=== PATIENT | female | born 1990 | race American Indian/Alaskan Native ===

== ENCOUNTER 2017-01-19 15:54 | Emergency (ER) | payer SELFPAY ==
[2017-01-19 16:26] VITALS: BP 146/96
--- NOTE | 2017-01-19 16:28 | Emergency Department Report ---
Stated Complaint: SOB/DIZZINESS Time Seen by Provider: 01/19/17 16:26 - HPI History of Present Illness: PT states she does not feel well today. PT states this started yesterday after she was cleaning with toilet latrine cleaner and bleach. PT states she has been coughing and having chest pain. - ROS Review of Systems: - fever, chills + chest pain - Exam Vital Signs: Vital Signs 01/19/17 16:24 Temperature 99.2 F Pulse Rate 104 H Respiratory 22 Rate Blood Pressure 146/96 O2 Sat by Pulse 99 Oximetry Physical Exam: thin female no acute resp distress lungs [facility] MSE screening note: Focused history and physical exam performed. Due to findings the following was ordered: ekg, labs, chest xr ED Disposition for MSE Condition: Stable
[2017-01-19 17:11] LABS: Basophils % (Auto) 0.3 % (0.0-1.8); Eosinophils % (Auto) 1.2 % (0.0-4.3); Hematocrit 39.3 % (30.3-42.9); Hemoglobin 13.4 gm/dl (10.1-14.3); Mean Corpuscular HGB Conc 34 % (30-34); Mean Corpuscular Hemoglobin 33 pg (28-32); Mean Corpuscular Volume 96 fl (79-97); Platelet Count 204 K/mm3 (140-440); Red Blood Count 4.11 M/mm3 (3.65-5.03); Red Cell Distribution Width 13.6 % (13.2-15.2); White Blood Count 7.5 K/mm3 (4.5-11.0)
[2017-01-19 17:29] LABS: Anion Gap 18 mmol/L; BUN/Creatinine Ratio 12.85; Blood Urea Nitrogen 9 mg/dL (7-17); Calcium 9.1 mg/dL (8.4-10.2); Carbon Dioxide 23 mmol/L (22-30); Chloride 101.2 mmol/L (98-107); Glucose 91 mg/dL (65-100); Potassium 3.5 mmol/L (3.6-5.0); Sodium 139 mmol/L (137-145)
--- NOTE | 2017-01-20 07:47 | XRay Report ---
ROUTINE CHEST, TWO VIEWS: HISTORY: chest pain. The trachea, heart, mediastinal contour, lung de and bony thorax are unremarkable. IMPRESSION: Unremarkable chest x-ray.
== END 2017-01-19 22:08 | disposition left against medical advice (07) ==
LOC: ED 15:54
DX: R42 Dizziness and giddiness (principal); Z53.21 Procedure and treatment not carried out due to patient leaving prior to being seen by health care provider
CPT/HCPCS: 36415; 71020; 80048; 84484; 84703; 85025; 93005; 93010

== ENCOUNTER 2018-05-06 09:41 | Emergency (ER) | payer OTHER, SELFPAY ==
[2018-05-06] MEDS ORDERED: IBUPROFEN PO ONE (11:01)
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
[2018-05-06 12:20] VITALS: BP 125/71
== END 2018-05-06 11:30 | disposition home or self-care (01) ==
LOC: ED 09:41
DX: R51 Headache (principal); M54.2 Cervicalgia; M54.5 Low back pain; V49.9XXA Car occupant (driver) (passenger) injured in unspecified traffic accident, initial encounter; Y93.89 Activity, other specified; Y92.488 Other paved roadways as the place of occurrence of the external cause; Y99.8 Other external cause status
CPT/HCPCS: 99282

== ENCOUNTER 2018-06-25 07:42 | Emergency (ER) | payer OTHER ==
[2018-06-25 07:59] VITALS: BP 139/91
--- NOTE | 2018-06-25 08:29 | Emergency Department Report ---
Abscess Boil HPI - HPI Chief Complaint: Skin/Abscess/Foreign Body Stated Complaint: CYST Time Seen by Provider: 06/25/18 08:07 Duration: >1 Week Location: Sacral/Pilonidal Severity: Mild History: Yes Pain, Yes Previous History, No Fever, No Purulent Drainage, No Numbness, No Foreign Body, No Insect Bite HPI: Patient is a 27-year-old -[place] female who comes to the ER today with chronic cyst of her buttocks. She has a history of pilonidal cyst. They have been recurrent. She has old lesions on her left buttocks. She has one small area on her right buttocks that is red and firm to touch likely early abscess formation. Patient states that she has never been told that she needed to follow up with a general surgeon to prevent this from recurring. Patient has no fever she is ambulatory and nontoxic Home Medications: Previous Rx's Medication Instructions Recorded Last Taken Type cephALEXin [Keflex] 500 mg PO Q12HR #20 cap 06/25/18 Unknown Rx Allergies/Adverse Reactions: Allergies Allergy/AdvReac Type Severity Reaction Status Date / Time No Known Allergies Allergy Verified 09/11/15 07:24 ED Review of Systems ROS: Stated complaint: CYST Other details as noted in HPI Comment: All other systems reviewed and negative Constitutional: denies: see HPI ENT: denies: ear pain Respiratory: denies: cough Cardiovascular: denies: palpitations Endocrine: denies: excessive sweating Gastrointestinal: denies: nausea Genitourinary: denies: urgency Musculoskeletal: denies: back pain Skin: as per HPI, lesions Neurological: denies: headache Psychiatric: denies: anxiety ED Past Medical Hx - Past Medical History Previous Medical History?: No Hx Congestive Heart Failure: No Hx Diabetes: No Hx Asthma: No Hx COPD: No Additional medical history: recurrent abscess of buttocks - pilonial - Surgical History Past Surgical History?: No - Social History Smoking Status: Never Smoker Substance Use Type: Alcohol - Medications Home Medications: Home Medications Medication Instructions Recorded Confirmed Last Taken Type cephALEXin [Keflex] 500 mg PO Q12HR #20 cap 06/25/18 Unknown Rx ED Abscess Boil Physical Exam - Exam General: Vital signs noted. No distress. Alert and acting appropriately. Exam: Yes Surrounding Cellulites/Erythema, Yes Normal Neurologic Exam, Yes Normal Circulation, No Tenderness, No Fluctuance, No Lymphangitis, No Crepitation, No Heart Murmur ED Course Vital Signs 06/25/18 07:57 Temperature 98.9 F Pulse Rate 86 Respiratory 17 Rate Blood Pressure 139/91 O2 Sat by Pulse 100 Oximetry Critical care attestation.: If time is entered above; I have spent that time in minutes in the direct care of this critically ill patient, excluding procedure time. ED Medical Decision Making - Medical Decision Making There is no area that needs I&D at the present time. I have spent time with the patient educating her about ongoing management of her issues. I have encouraged her to follow up with a general surgeon so that she can get this resolved definitively and not have to keep having abscess drainage etc. She's been given a referral and verbalizes understanding. Patient being sent home on antibiotics ED Disposition Clinical Impression: Abscess, Chronic recurrent pilonidal cyst without abscess Disposition: DC-01 TO HOME OR SELFCARE Is pt being admited?: No Does the pt Need Aspirin: No Condition: Stable Instructions: Abscess (ED) Additional Instructions: meds as instructed today follow up with general surgery sonu motrin or tylenol for pain Prescriptions: cephALEXin [Keflex] 500 mg PO Q12HR #20 cap Referrals: PRIMARY CARE, [Primary Care Provider] - 3-5 Days SHALA MENCHACA DO [Staff Physician] - 3-5 Days Forms: Work/School Release Form(ED) Time of Disposition: 08:29
== END 2018-06-25 08:47 | disposition home or self-care (01) ==
LOC: ED 07:42
DX: L05.01 Pilonidal cyst with abscess (principal)
CPT/HCPCS: 99282

== ENCOUNTER 2021-02-13 06:59 | Emergency (ER) | payer SELFPAY ==
[2021-02-13] MEDS ORDERED: IBUPROFEN 800 MG TAB PO ONE (07:14)
--- NOTE | 2021-02-13 08:19 | Emergency Department Report ---
ED Lower Extremity HPI - General Chief Complaint: Extremity Injury, Lower Stated Complaint: PINKY TOE INJURY Time Seen by Provider: 02/13/21 07:13 Source: patient Mode of arrival: Ambulatory Limitations: No Limitations - History of Present Illness Initial Comments: This is a 30-year-old female nontoxic, well nourished in appearance, no acute signs of distress presents to the ED with c/o of left 5th toe pain x 1 day. Patient stated that she tripped and fell and hit her toe. Patient denies any other injuries or trauma. Patient denies any numbness, tingling, fever, chills, nausea, vomiting, chest pain, shortness of breath, headache, stiff neck. P atient denies any joint swelling or joint redness. Patient denies decreased range of motion. Patient stated has decreased gait due to pain. Patient denies any allergies or significant past medical history. MD Complaint: other (left 5th toe) -: days(s) Injury: Toes: Left Place: home Severity: mild Severity scale (0 -10): 3 Improves With: nothing Worsens With: palpation Associated Symptoms: ambulatory. denies: snap/pop sensation, swelling, numbness, tingling, unable to bear weight, able to partially bear weight - Related Data Previous Rx's Medication Instructions Recorded Last Taken Type cephALEXin [Keflex] 500 mg PO Q12HR #20 cap 06/25/18 Unknown Rx Naproxen 500 mg PO Q12H PRN #12 tablet 02/13/21 Unknown Rx Allergies Allergy/AdvReac Type Severity Reaction Status Date / Time No Known Allergies Allergy Verified 02/13/21 07:15 ED Review of Systems ROS: Stated complaint: PINKY TOE INJURY Other details as noted in HPI Comment: All other systems reviewed and negative Constitutional: denies: chills, fever Eyes: denies: eye pain, eye discharge, vision change ENT: denies: ear pain, throat pain Respiratory: denies: cough, shortness of breath, wheezing Cardiovascular: denies: chest pain, palpitations Endocrine: no symptoms reported Gastrointestinal: denies: abdominal pain, nausea, diarrhea Genitourinary: denies: urgency, dysuria, discharge Musculoskeletal: denies: back pain, joint swelling, arthralgia Skin: denies: rash, lesions Neurological: denies: headache, weakness, paresthesias Psychiatric: denies: anxiety, depression Hematological/Lymphatic: denies: easy bleeding, easy bruising ED Past Medical Hx - Past Medical History Hx Congestive Heart Failure: No Hx Diabetes: No Hx Asthma: No Hx COPD: No Additional medical history: recurrent abscess of buttocks - pilonial - Social History Smoking Status: Never Smoker Substance Use Type: Alcohol - Medications Home Medications: Home Medications Medication Instructions Recorded Confirmed Last Taken Type cephALEXin [Keflex] 500 mg PO Q12HR #20 cap 06/25/18 Unknown Rx Naproxen 500 mg PO Q12H PRN #12 tablet 02/13/21 Unknown Rx ED Physical Exam - General Limitations: No Limitations General appearance: alert, in no apparent distress - Head Head exam: Present: atraumatic, normocephalic - Eye Eye exam: Present: normal appearance - Neck Neck exam: Present: full ROM - Respiratory Respiratory exam: Absent: respiratory distress - Cardiovascular Cardiovascular Exam: Present: regular rate - Extremities Exam Extremities exam: Present: normal inspection, full ROM, tenderness, normal capillary refill. Absent: joint swelling - Expanded Lower Extremity Exam Left Hip exam: Present: normal inspection, full ROM. Absent: tenderness, swelling Upper Leg exam: Present: normal inspection, full ROM. Absent: tenderness, swelling Knee exam: Present: normal inspection, full ROM. Absent: tenderness, swelling Lower Leg exam: Present: normal inspection, full ROM. Absent: tenderness, swelling Ankle exam: Present: normal inspection, full ROM. Absent: tenderness, swelling, abrasion, laceration, ecchymosis, deformity, crepidus, dislocation, erythema, anterior draw sign Foot/Toe exam: Present: normal inspection, full ROM, tenderness, ecchymosis. Absent: swelling, abrasion, laceration, deformity, crepidus, dislocation, erythema, amputation, puncture wound, foreign body, calcaneal tenderness, tenderness at base of 5th metatarsal, nail avulsion, subungual hematoma Neuro vascular tendon exam: Present: no vascular compromise Gait: Positive: observed and normal 1 - pain here - Back Exam Back exam: Present: normal inspection, full ROM. Absent: tenderness, CVA tenderness (R), CVA tenderness (L), muscle spasm, paraspinal tenderness, vertebral tenderness, rash noted - Neurological Exam Neurological exam: Present: alert, oriented X3, normal gait - Psychiatric Psychiatric exam: Present: normal affect, normal mood - Skin Skin exam: Present: warm, dry, intact, normal color. Absent: rash ED Course Vital Signs 02/13/21 08:32 Temperature 98.0 F Pulse Rate 81 Respiratory 19 Rate Blood Pressure 133/82 O2 Sat by Pulse 100 Oximetry - Reevaluation(s) Reevaluation #1: 02/13/21 08:23 Patient is speaking in full sentences with no signs of distress noted. ED Lower Extremity MDM - Radiology Data [facility] [address] [place] [address] XRay Report Signed Patient: JCARLOS MCCURDY MR#: [id number] : 1990 Acct:[id number] Age/Sex: 30 / F ADM Date: 02/13/21 Loc: ED Attending Dr: Ordering Physician: PETER DELGADILLO NP Date of Service: 02/13/21 Procedure(s): XR foot 3+V LT Accession Number(s): [id number] cc: PETER DELGADILLO NP Fluoro Time In Minutes: LEFT FOOT 3 VIEWS INDICATION: pain s/p fall. COMPARISON: None. IMPRESSION: A subtle nondisplaced fracture is identified at the base of the distal phalanx of the fifth toe. No additional fractures. An approximate 1 cm osteochondral defect is suspected involving the first metatarsal head. No unstable fragment is detected on x-ray. If further evaluation is needed MRI could be obtained. The remaining joint spaces are unremarkable. Signer Name: Kyler Murray Jr, MD Signed: 02/13/2021 8:19 AM Workstation Name: [id number] Transcribed By: TTR Dictated By: KYLER MURRAY JR, MD Electronically Authenticated By: KYLER MURRAY JR, MD Signed Date/Time: 02/13/21818 DD/ 6 TD/TT: - Medical Decision Making This is a 30-year-old female that presents with left toe fracture. Patient is stable and was examined by me. I referred patient to an orthopedic doctor for further evaluation for possible MRI. X-ray has been obtained and dictated by the radiologist. Patient is notified of the x-ray report with noted by the patient. Patient does have normal gait with no tenderness and no joint swelling. No ecchymosis. no joint redness or swelling. Not warm to touch. No signs of cellulites present. Patient received a korey splint to fifth and fourth toe and a postop Ortho shoe. Patient was instructed to RICE therapy. Patient received Motrin for pain. Patient is discharged with naproxen. At time of discharge, the patient does not seem toxic or ill in appearance. No acute signs of distress noted. Patient agrees to discharge treatment plan of care. No further questions noted by the patient. Critical care attestation.: If time is entered above; I have spent that time in minutes in the direct care of this critically ill patient, excluding procedure time. ED Disposition Clinical Impression: Toe fracture, left Qualifiers: Encounter type: initial encounter Toe: lesser toe Fracture type: closed Phalanx: distal Fracture alignment: nondisplaced Qualified Code(s): S92.535A - Nondisplaced fracture of distal phalanx of left lesser toe(s), initial encounter for closed fracture Disposition: 01 HOME / SELF CARE / HOMELESS Is pt being admited?: No Does the pt Need Aspirin: No Condition: Stable Instructions: Toe Fracture, [id number] Additional Instructions: Follow-up with a orthopedic doctor in 3-5 days or if symptoms worsen and continue return to emergency room as soon as possible. No physical activity that extremity until cleared by orthopedic doctor Prescriptions: Naproxen 500 mg PO Q12H PRN #12 tablet PRN Reason: Pain , Severe (7-10) Referrals: PRIMARY CAREMD [Referring] - 3-5 Days BRODY MAYES MD [Staff Physician] - 3-5 Days Forms: Work/School Release Form(ED) Time of Disposition: 08:27
--- NOTE | 2021-02-13 08:24 | XRay Report ---
LEFT FOOT 3 VIEWS INDICATION: pain s/p fall. COMPARISON: None. IMPRESSION: A subtle nondisplaced fracture is identified at the base of the distal phalanx of the fi fth toe. No additional fractures. An approximate 1 cm osteochondral defect is suspected involving th e first metatarsal head. No unstable fragment is detected on x-ray. If further evaluation is needed M RI could be obtained. The remaining joint spaces are unremarkable. Signer Name: Kyler Murray Jr, MD Signed: 02/13/2021 8:19 AM Workstation Name: [id number]
[2021-02-13 08:33] VITALS: BP 133/82
== END 2021-02-13 08:47 | disposition home or self-care (01) ==
LOC: ED 06:59
DX: S92.535A Nondisplaced fracture of distal phalanx of left lesser toe(s), initial encounter for closed fracture (principal); Z72.89 Other problems related to lifestyle; Z79.899 Other long term (current) drug therapy; W01.0XXA Fall on same level from slipping, tripping and stumbling without subsequent striking against object, initial encounter; Y93.89 Activity, other specified; Y92.89 Other specified places as the place of occurrence of the external cause; Y99.8 Other external cause status
CPT/HCPCS: 99283

== ENCOUNTER 2021-05-13 07:31 | Emergency (ER) | payer SELFPAY ==
--- NOTE | 2021-05-13 10:17 | Emergency Department Report ---
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 Patient is experiencing a current outbreak x1 day. Patient has multiple lesions noted to upper and bottom lip. Patient is alert and oriented. Patient is able to eat and drink without any difficulty. No drainage noted from the lesion. No acute distress noted no ill appearance noted. No other rash noted ED Past Medical Hx - Past Medical History Previous Medical History?: Yes Hx Congestive Heart Failure: No Hx Diabetes: No Hx Asthma: No Hx COPD: No Additional medical history: recurrent abscess of buttocks - pilonial - Surgical History Past Surgical History?: Yes - Social History Smoking Status: Never Smoker Substance Use Type: Alcohol - Medications Home Medications: Home Medications Medication Instructions Recorded Confirmed Last Taken Type cephALEXin [Keflex] 500 mg PO Q12HR #20 cap 06/25/18 Unknown Rx Naproxen 500 mg PO Q12H PRN #12 tablet 02/13/21 Unknown Rx ED Review of Systems ROS: Stated complaint: cold sore Other details as noted in HPI Constitutional: denies: chills, fever Eyes: denies: eye pain, eye discharge, vision change ENT: denies: ear pain, throat pain Respiratory: denies: cough, shortness of breath, wheezing Cardiovascular: denies: chest pain, palpitations Endocrine: no symptoms reported Gastrointestinal: denies: abdominal pain, nausea, diarrhea Genitourinary: denies: urgency, dysuria, discharge Musculoskeletal: denies: back pain, joint swelling, arthralgia Skin: denies: rash, lesions Neurological: denies: headache, weakness, paresthesias Psychiatric: denies: anxiety, depression Hematological/Lymphatic: denies: easy bleeding, easy bruising Physical Exam - Physical Exam Vital Signs: Vital Signs 05/13/21 08:06 Temperature 98 F Pulse Rate 72 Respiratory 16 Rate Blood Pressure 138/93 [Left] O2 Sat by Pulse 96 Oximetry ED Course Vital Signs 05/13/21 08:06 Temperature 98 F Pulse Rate 72 Respiratory 16 Rate Blood Pressure 138/93 [Left] O2 Sat by Pulse 96 Oximetry ED Medical Decision Making - Medical Decision Making 30 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 Patient is experiencing a current outbreak x1 day. Patient has multiple lesions noted to upper and bottom lip. Patient is alert and oriented. Patient is able to eat and drink without any difficulty. No drainage noted from the lesion. No acute distress noted no ill appearance noted. No other rash noted. Patient will be treated with Valtrex. Patient also is continue to use Abreva [id number]. Critical care attestation.: If time is entered above; I have spent that time in minutes in the direct care of this critically ill patient, excluding procedure time. ED Disposition Condition: Stable Referrals: PRIMARY CARE, [Primary Care Provider] - 3-5 Days
--- NOTE | 2021-05-13 10:27 | Emergency Department Report ---
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 Patient is experiencing a current outbreak x1 day. Patient has multiple oral ulcer noted to along bottom lip. Patient is alert and oriented. Patient is able to eat and drink without any difficulty. No drainage noted from the lesion. No acute distress noted no ill appearance noted. No other rash noted. Patient states she used Abreva without any successful result.Patient state recurrent outbreak . Onset/Timin -: days(s) Location: mouth Radiation: non-radiation Severity scale (0 -10): 2 Quality: other (Tingling) Improves with: none Worsens with: none Associated Symptoms: denies other symptoms Treatments Prior to Arrival: none, other (Abreva) - Related Data Previous Rx's Medication Instructions Recorded Last Taken Type cephALEXin [Keflex] 500 mg PO Q12HR #20 cap 06/25/18 Unknown Rx Naproxen 500 mg PO Q12H PRN #12 tablet 02/13/21 Unknown Rx valACYclovir [Valtrex] 500 mg PO DAILY #30 tab 05/13/21 Unknown Rx Allergies Allergy/AdvReac Type Severity Reaction Status Date / Time No Known Allergies Allergy Verified 02/13/21 07:15 ED Review of Systems ROS: Stated complaint: cold sore Other details as noted in HPI Constitutional: denies: chills, fever Eyes: denies: eye pain, eye discharge, vision change ENT: denies: ear pain, throat pain Respiratory: denies: cough, shortness of breath, wheezing Cardiovascular: denies: chest pain, palpitations Endocrine: no symptoms reported Gastrointestinal: denies: abdominal pain, nausea, diarrhea Genitourinary: denies: urgency, dysuria, discharge Musculoskeletal: denies: back pain, joint swelling, arthralgia Skin: other (ulcer to mouth ). denies: rash, lesions Neurological: denies: headache, weakness, paresthesias Psychiatric: denies: anxiety, depression Hematological/Lymphatic: denies: easy bleeding, easy bruising ED Past Medical Hx - Past Medical History Previous Medical History?: Yes Hx Congestive Heart Failure: No Hx Diabetes: No Hx Asthma: No Hx COPD: No Additional medical history: recurrent abscess of buttocks - pilonial - Surgical History Past Surgical History?: Yes - Social History Smoking Status: Never Smoker Substance Use Type: Alcohol - Medications Home Medications: Home Medications Medication Instructions Recorded Confirmed Last Taken Type cephALEXin [Keflex] 500 mg PO Q12HR #20 cap 06/25/18 Unknown Rx Naproxen 500 mg PO Q12H PRN #12 tablet 02/13/21 Unknown Rx valACYclovir [Valtrex] 500 mg PO DAILY #30 tab 05/13/21 Unknown Rx ED Physical Exam - General Limitations: No Limitations General appearance: alert, in no apparent distress - Head Head exam: Present: atraumatic, normocephalic - Eye Eye exam: Present: normal appearance - ENT ENT exam: Present: mucous membranes moist - Neck Neck exam: Present: normal inspection - Respiratory Respiratory exam: Present: normal lung sounds bilaterally. Absent: respiratory distress - Cardiovascular Cardiovascular Exam: Present: regular rate, normal rhythm. Absent: systolic murmur, diastolic murmur, rubs, gallop - GI/Abdominal GI/Abdominal exam: Present: soft, normal bowel sounds - Extremities Exam Extremities exam: Present: normal inspection - Back Exam Back exam: Present: normal inspection - Neurological Exam Neurological exam: Present: alert, oriented X3 - Psychiatric Psychiatric exam: Present: normal affect, normal mood - Skin Skin exam: Present: warm, dry, intact, normal color, vesicles. Absent: rash ED Course Vital Signs 05/13/21 05/13/21 08:06 11:25 Temperature 98 F 98.5 F Pulse Rate 72 Respiratory 16 16 Rate Blood Pressure 138/93 147/100 [Left] O2 Sat by Pulse 96 99 Oximetry ED Medical Decision Making - Medical Decision Making 30 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 Patient is experiencing a current outbreak x1 day. Patient has multiple ulcer to bottom lip. Patient is alert and oriented. Patient is able to eat and drink without any difficulty. No drainage noted from the lesion. No acute distress noted no ill appearance noted. No other rash noted. Patient previous tried Abreva. Patient has recurrent outbreak. We will treat patient with Valtrex and discharge home. Critical care attestation.: If time is entered above; I have spent that time in minutes in the direct care of this critically ill patient, excluding procedure time. ED Disposition Clinical Impression: Herpes simplex Disposition: HOME / SELF CARE / HOMELESS Is pt being admited?: No Does the pt Need Aspirin: No Condition: Stable Instructions: Cold Sore, [id number] Additional Instructions: Take Valtrex 2 g twice a day for 1 day and may take Valtrex 500 mg daily to prevent further outbreak. Do not kiss anyone while you have outbreak Outbreak Follow up with PCP has needed Prescriptions: valACYclovir [Valtrex] 500 mg PO DAILY #30 tab Referrals: PRIMARY CARE, [Primary Care Provider] - 3-5 Days Forms: Work/School Release Form(ED) Time of Disposition: 10:30
[2021-05-13 11:34] VITALS: BP 147/100
== END 2021-05-13 11:34 | disposition home or self-care (01) ==
LOC: ED 07:31
DX: B00.9 Herpesviral infection, unspecified (principal); F10.20 Alcohol dependence, uncomplicated
CPT/HCPCS: 99282